=== PATIENT | male | born 1995 | race Hispanic/Latino ===

== ENCOUNTER 2021-08-30 12:29 | Emergency (ER) | payer MEDICAID ==
[2021-08-30 12:42] VITALS: BP 151/110
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
== END 2021-08-30 18:23 | disposition home or self-care (01) ==
LOC: ED 12:29
DX: S01.91XA Laceration without foreign body of unspecified part of head, initial encounter (principal); X58.XXXA Exposure to other specified factors, initial encounter; Y93.89 Activity, other specified; Y92.89 Other specified places as the place of occurrence of the external cause; Y99.8 Other external cause status
CPT/HCPCS: 99283

== ENCOUNTER 2021-09-05 08:48 | Emergency (ER) | payer MEDICAID ==
[2021-09-05 09:12] VITALS: BP 148/92
--- NOTE | 2021-09-05 10:57 | Emergency Department Report ---
ED Dysuria HPI - HPI Chief Complaint: Laceration/Recheck/Suture Stated Complaint: RASHAD REMOVED Time Seen by Provider: 09/05/21 10:09 ED Review of Systems ROS: Stated complaint: RASHAD REMOVED Other details as noted in HPI ED Past Medical Hx - Past Medical History Previous Medical History?: No - Surgical History Past Surgical History?: No - Social History Smoking Status: Never Smoker Dysuria Exam - Exam General: Vital signs noted. No distress. Alert and acting appropriately. ED Course Vital Signs 09/05/21 09/05/21 09:08 10:02 Temperature 97.9 F Pulse Rate 89 Respiratory 19 18 Rate Blood Pressure 148/92 O2 Sat by Pulse 100 98 Oximetry Critical care attestation.: If time is entered above; I have spent that time in minutes in the direct care of this critically ill patient, excluding procedure time. ED Disposition Condition: Stable
--- NOTE | 2021-09-05 11:01 | Emergency Department Report ---
Suture/Staple Removal - HPI Chief Complaint: Laceration/Recheck/Suture Stated Complaint: FRANCI REMOVED Time Seen by Provider: 09/05/21 10:09 When Sutures or Bath Placed: 5-7 Days Ago ED Review of Systems ROS: Stated complaint: FRANCI REMOVED Other details as noted in HPI Comment: All other systems reviewed and negative Constitutional: denies: chills, fever, malaise, weakness Respiratory: denies: shortness of breath Cardiovascular: denies: chest pain Gastrointestinal: denies: abdominal pain ED Past Medical Hx - Past Medical History Previous Medical History?: No - Surgical History Past Surgical History?: No - Social History Smoking Status: Never Smoker Suture Removal Exam - Exam General: Vital signs noted. No distress. Alert and acting appropriately. Wound: No Pathologic Erythema, No Tenderness, No Drainage, No Pus, No Wound Deh iscence Other Systems: All other systems reviewed and are unremarkable. ED Course Vital Signs 09/05/21 09/05/21 09:08 10:02 Temperature 97.9 F Pulse Rate 89 Respiratory 19 18 Rate Blood Pressure 148/92 O2 Sat by Pulse 100 98 Oximetry - Procedure Description Procedures done: Staple remover: 5 franci removed from scalp. No erythema edema or drainage noted. Removed with staple remover, and patient tolerated well. ED Recheck MDM - Differential Diagnosis Suture/Staple Removal - Medical Decision Making Staple removed per my procedure note. Patient tolerated well. He will advised to return for any signs of infection and follow-up with primary care provider as needed. He verbalized understanding of and agreement with plan of care. Critical care attestation.: If time is entered above; I have spent that time in minutes in the direct care of this critically ill patient, excluding procedure time. ED Disposition Clinical Impression: Removal of franci Disposition: 01 HOME / SELF CARE / HOMELESS Is pt being admited?: No Does the pt Need Aspirin: No Condition: Stable Instructions: Wound Closure Removal, Care After Additional Instructions: Return for signs of infection. Follow-up with your primary care provider as needed. Forms: Work/School Release Form(ED) Time of Disposition: 11:00
== END 2021-09-05 11:37 | disposition home or self-care (01) ==
LOC: ED 08:48
DX: Z48.02 Encounter for removal of sutures (principal)